=== PATIENT | female | born 1995 | race Caucasian/White ===

== ENCOUNTER 2022-08-25 07:39 | Inpatient (IN) ==
[2022-08-25] MEDS ORDERED: LIDOCAINE 1% LOCAL 20 ML VIAL INFIL PRN ×2 (07:58→08:05)
[2022-08-25] MEDS ORDERED: OXYTOCIN 30 UNITS/500 ML BAG IV PRN ×2 (07:58→08:05)
[2022-08-25] MEDS ORDERED: LACTATED RINGER'S 1,000 ML IV PRN (08:05)
[2022-08-25 08:50] LABS: Hematocrit (blood only) 35.1 % (37.0-47.0); Hemoglobin 11.7 g/dl (12.0-16.0); Mean Corpuscular Hemoglobin 27.7 pg (25.0-34.0); Mean Corpuscular Hgb Conc 33.3 g/dL (32.0-36.0); Mean Platelet Volume 10.3 fL (9.4-12.4); Platelet Count 297 K/uL (130-400); RDW Coefficient of Variation 15.5 % (11.5-14.5); RDW Standard Deviation 46.8 fL (36.4-46.3); Red Blood Count 4.23 M/uL (4.20-5.40); White Blood Count 10.04 K/ul (4.8-10.8)
--- NOTE | 2022-08-25 09:23 | History & Physical Report ---
Date of Service August 25, 2022 Assessment & Plan (1) Post-dates : Plan: Cervidil for cervical ripening Admission and Anticipated Discharge Date Admission Date: August 25, 2022 History of Present Illness Chief Complaint: induction of labor for post-dates Primary Care Provider: GHAZALA PCP 27 F P0000 at 40.4 weeks for IOL for post-dates. GBS is negative. Covid is negative. Home Medications Medication Instructions Recorded Confirmed Type Iron (ferrous sulfate) 1 tab PO DAILY 08/25/22 08/25/22 History 1 tab PO DAILY 08/25/22 08/25/22 History Patient History Medical History Anemia affecting first Patient received 3 iron infusions and currently taking Iron tablet. Surgical screw in right hand Right hand surgery with plate and 9 srews. 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 History neg Review of Systems All systems reviewed & are unremarkable except as noted in HPI & below Physical Exam Constitutional: WD/WN, vitals as above Eyes: PERRL, conjunctivae normal, anicteric sclerae Respiratory: normal respiratory effort, lungs clear to auscultation Cardiovascular: Rate/Rhythm: regular rate and regular rhythm Musculoskeletal: Extremities: extremities normal to inspection Skin: no rashes, warm and dry Neurologic: patellar DTR's 2+ bilat, sensation intact Psychiatric: A+Ox3, euthymic affect Genitourinary: no vaginal lesions, no adnexal mass OB Exam Abdomen: + fundal height, + vertex and + estimated weight (7-8 lbs) Manual OB Exam: + cervical dilation fingertip, + cervical effacement 50% and + station high OB Exam Monitor Tracing: + external FHT monitor used, + external uterine monitor used, + category I and + normal FHT variability cervix posterior and firm Results & Data Vital Signs (Past 12 Hours) Vital Signs Pulse BP 08/25/22 07:57 120 H 131/78 Laboratory Results 08/25/22 08/25/22 08:23 Unknown WBC 10.04 RBC 4.23 Hgb 11.7 L Hct 35.1 L MCV 83.0 MCH 27.7 MCHC 33.3 RDW Std Deviation 46.8 H RDW Coeff of Yao 15.5 H Plt Count 297 MPV 10.3 SARS-CoV-2, RNA, NAAT NEGATIVE Monitoring External Monitor Cat 1
[2022-08-25] MEDS ORDERED: DINOPROSTONE 10 MG INSERT PV ONE (09:30)
--- NOTE | 2022-08-25 11:04 | Labor Progress Brief Note ---
Date of Service August 25, 2022 Assessment & Plan Admission and Anticipated Discharge Date Admission Date: August 25, 2022 Physical Exam Genitourinary: OB Exam Monitor Tracing: + external FHT monitor used, + external uterine monitor used, + category I and + normal FHT variability Cervidil placed vaginally for ripening of cervix Results & Data Vital Signs (Past 12 Hours) Vital Signs Temp Pulse Resp BP 08/25/22 09:47 109 H 111/76 08/25/22 07:57 36.6 C 120 H 18 131/78 08/25/22 08:45 36.6 C 120 H 18 131/78
[2022-08-25] MEDS ORDERED: ZOLPIDEM TARTRATE 5 MG TAB PO PRN (17:55)
--- NOTE | 2022-08-25 22:51 | Labor Progress Brief Note ---
Date of Service August 25, 2022 Assessment & Plan Admission and Anticipated Discharge Date Admission Date: August 25, 2022 Physical Exam Genitourinary: Manual OB Exam: + cervical dilation 1 cm, + cervical effacement 50% and + station high OB Exam Monitor Tracing: + external FHT monitor used, + external uterine monitor used, + category I and + normal FHT variability Cervidil removed Will start Cytotec PO if contractions subside Results & Data Vital Signs (Past 12 Hours) Vital Signs Temp Pulse Pulse Resp BP BP O2 Del Method 08/25/22 19:48 62 24 Room Air 08/25/22 19:22 36.6 C 124 H 24 111/66 Room Air 08/25/22 13:26 36.6 C 18 08/25/22 22:45 95 H 124/78 08/25/22 19:18 137 H 111/66 08/25/22 16:25 18 08/25/22 16:25 36.7 C 18 08/25/22 16:26 103 H 125/70 08/25/22 13:26 99 H 117/69
[2022-08-26] MEDS: miSOPROStoL 50 MCG TAB PO SCH ×2 (03:50→10:13)
--- NOTE | 2022-08-26 09:13 | Labor Progress Brief Note ---
Date of Service August 26, 2022 Subjective Reason For Note: Routine Evaluation Review of Systems All systems reviewed & are unremarkable except as noted in HPI & below Constitutional: as per Subjective / HPI Assessment & Plan (1) Normal labor: Plan start pitocin to aument labor Pain meds including epidural as the pt desires Admission and Anticipated Discharge Date Admission Date: August 25, 2022 Physical Exam Constitutional: WD/WN, vitals as above Genitourinary: OB Exam Abdomen: + heart tones, + vertex and + regular contractions (7 lbs 5 ozs) Manual OB Exam: + cervical dilation 1 cm, + cervical effacement 60% and + station -1 OB Exam Monitor Tracing: + external FHT monitor used, + category I and + normal FHT variability Results & Data Vital Signs (Past 12 Hours) Vital Signs Temp Pulse Resp BP 08/26/22 07:00 102 H 111/69 08/26/22 03:31 36.6 C 93 H 18 118/78 08/25/22 22:45 36.6 C 95 H 18 124/78 Supervising Physician Co-Signing Physician Notes Margarita MARAVILLA
[2022-08-26] MEDS ORDERED: OXYTOCIN 30 UNITS/500 ML BAG IV PRN (10:43)
[2022-08-26] MEDS: LACTATED RINGER'S 1,000 ML IV PRN ×3 (11:01→18:03)
[2022-08-26] MEDS ORDERED: Nursing to Pharmacy Communication SCH (11:45)
[2022-08-26] MEDS ORDERED: BUPIVACAINE 0.25% PF 30 ML VIAL ONE (15:29)
[2022-08-26] MEDS ORDERED: fentaNYL citrate PF 100 MCG/2 ML VIAL ONE (15:29)
[2022-08-26] MEDS ORDERED: SODIUM CHLORIDE 0.9% PF INJ 10 ML VIAL ONE (15:29)
[2022-08-26] MEDS ORDERED: ePHEDrine sulfate 50 MG/ML AMP ONE (15:29)
[2022-08-26] MEDS ORDERED: LIDOCAINE 2%/EPINEPHRINE 1:200,000 20 ML PF ONE (15:29)
[2022-08-26] MEDS ORDERED: fentaNYL 2MCG/ML ROPIVACAINE 1.25MG/ML 100 ML BAG EPI ONE (15:30)
--- NOTE | 2022-08-26 16:02 | Anesthesiology Consultation ---
Date of Service August 26, 2022 Assessment & Plan (1) Encounter for pre-operative examination: Chart Review Chart Review: Acceptable Risk for Labor Epidural History Height/Weight Height: 5 ft 5 in Weight: 82.554 kg Allergies Allergy/AdvReac Type Severity Reaction Status Date / Time No Known Allergies Allergy Unverified 08/25/22 12:01 Medications Home Medications Medication Instructions Recorded Confirmed Last Taken Iron (ferrous sulfate) 1 tab PO DAILY 08/25/22 08/25/22 08/25/22 04:45 1 tab PO DAILY 08/25/22 08/25/22 08/25/22 04:45 Active Medications Generic Name Dose Route Start Last Admin Trade Name Freq PRN Reason Stop Dose Admin Lactated Ringer's 1,000 mls @ 125 mls/hr 08/25/22 07:58 08/26/22 15:50 Lr IV 08/27/22 07:57 999 mls/hr .Q8H PRN Administration L&D Protocol Protocol Oxytocin 30 units in 500 mls @ 14 mls/hr 08/26/22 10:43 08/26/22 14:55 Pitocin IV 08/28/22 10:42 0.84 units/hr .Q24H PRN 14 mls/hr Labor Induction/Augmentation Titration Protocol 0.84 UNITS/HR Zolpidem Tartrate 5 mg 08/25/22 17:55 08/26/22 01:57 Zolpidem Tartrate 5 Mg Tab PO 09/24/22 17:54 5 mg HS PRN Administration Sleep Past Medical History Medical History Anemia affecting first Patient received 3 iron infusions and currently taking Iron tablet. Surgical screw in right hand Right hand surgery with plate and 9 srews. Past Family History Family History Mother Von Willebrand disease Grandfather (Maternal) Cancer Grandmother (Maternal) Cancer Social History Smoking Status: Never smoker Hx Alcohol Use: No Hx Substance Use: No substance use type: does not use Physical Exam Vital Signs Last Vital Signs Temp 36.7 C 08/26/22 14:53 Pulse 118 H 08/26/22 15:55 Resp 20 08/26/22 15:40 BP 127/88 08/26/22 15:40 Pulse Ox 90 08/26/22 15:55 O2 Del Method Room Air 08/25/22 19:48 Testing Laboratory Results 08/25/22 08:23
[2022-08-26] MEDS ORDERED: BUPIVACAINE 0.25% PF 30 ML VIAL EPI STA (16:22)
[2022-08-26] MEDS ORDERED: SODIUM CHLORIDE 0.9% PF INJ 10 ML VIAL EPI PRN (16:22)
[2022-08-26] MEDS ORDERED: NALOXONE HCL 0.4 MG/1 ML VIAL/CARP IV PRN (16:22)
[2022-08-26] MEDS ORDERED: fentaNYL 2MCG/ML ROPIVACAINE 1.25MG/ML 100 ML BAG EPI PRN (16:22)
[2022-08-26] MEDS ORDERED: ONDANSETRON INJ 2 MG/ML 2 ML VIAL IV PRN (16:22)
[2022-08-26] MEDS ORDERED: ePHEDrine sulfate 50 MG/ML AMP IV PRN (16:22)
[2022-08-26] MEDS ORDERED: fentaNYL citrate PF 100 MCG/2 ML VIAL EPI PRN (16:22)
[2022-08-26] MEDS ORDERED: SODIUM CHLORIDE 0.9% PF INJ 10 ML VIAL EPI STA (16:22)
[2022-08-26] MEDS ORDERED: ROPIVACAINE 0.5% PF 5 MG/ML 20 ML VIAL EPI PRN (16:22)
[2022-08-26] MEDS ORDERED: fentaNYL citrate PF 100 MCG/2 ML VIAL EPI STA (16:22)
[2022-08-26] MEDS ORDERED: BUPIVACAINE 0.25% PF 30 ML VIAL EPI PRN (16:22)
[2022-08-26] MEDS ORDERED: LIDOCAINE 2% MPF LOCAL 5 ML VIAL EPI PRN (16:22)
[2022-08-26] MEDS ORDERED: NALOXONE HCL 1 MG in SODIUM CHLORIDE 0.9% 1000ML 1,000 ML IV PRN (16:22)
[2022-08-26] MEDS ORDERED: LIDOCAINE 2%/EPINEPHRINE 1:200,000 20 ML PF EPI STA (16:22)
[2022-08-26] MEDS ORDERED: NURSING L&D Epidural Breakthrough Pain Update ONE (19:57)
--- NOTE | 2022-08-26 23:08 | Delivery Summary ---
Supervising Physician Co-Signing Physician Notes Zi MARAVILLA Vaginal Delivery Summary Date of Service August 26, 2022 Vaginal Delivery Summary and 2nd Degree LAC Pt fully dilated and pushing, placed in dorsal lithotomy position, prepped and draped in usual fashion, pushed for an hour delivered alive viable male IN OA position, nuchal cord around the neck x 1, reduced, placed the infant on the mothers abdomen, bulb suctioned nose and mouth, cord clamped and cut by the FOB. placenta delivered spoantenoulsy and complete. second degree vaginal lacerations noted, repaired with 2.0 and 3.0 Vicryl. IV Pitocin started. Pt tolerated the delivery well. Estimated blood loss; 350 cc. APGARS : 6,8 MNPG Vaginal Delivery Charge Delivery Type Details: and 2nd Degree LAC
[2022-08-26] MEDS ORDERED: HYDROCORTISONE ACETATE 25 MG SUPP PR PRN (23:10)
[2022-08-26] MEDS ORDERED: DIPHTHERIA/TETANUS/PERTUSSIS Vaccine (Tdap, Age 7+yrs) 0.5mL SYR/VL IM ONE (23:10)
[2022-08-26] MEDS ORDERED: ACETAMINOPHEN 325 MG TAB PO PRN (23:10)
[2022-08-26] MEDS ORDERED: BENZOCAINE 20% AER SPR 82.5 GM CAN EXT PRN (23:10)
[2022-08-26] MEDS ORDERED: bisacodyL 10 MG SUPP PR PRN (23:10)
--- NOTE | 2022-08-27 03:53 | Anesthesia Procedure Note ---
Date of Service August 27, 2022 Anesthesia Post Epidural Note Vital Signs Vital Signs: Temp Pulse Resp BP Pulse Ox O2 Del Method 36.5 C 120 H 22 116/74 96 Room Air 08/27/22 01:30 08/27/22 01:30 08/27/22 01:30 08/27/22 01:30 08/27/22 01:30 08/27/22 01:30 Notes Mental Status: alert / awake / arousable and participated in evaluation Nausea / Vomiting: adequately controlled Pain: adequately controlled Airway Patency, RR, SpO2: stable & adequate BP & HR: stable & adequate Hydration State: stable & adequate Neuraxial Anesthesia: was administered and sensory block is resolving Anesthetic Complications: no major complications apparent Epidural: Removed without complications and With tip intact
[2022-08-27 06:33] LABS: Hematocrit (blood only) 31.2 % (37.0-47.0); Hemoglobin 10.4 g/dl (12.0-16.0); Mean Corpuscular Hemoglobin 27.4 pg (25.0-34.0); Mean Corpuscular Hgb Conc 33.3 g/dL (32.0-36.0); Mean Corpuscular Volume 82.1 fL (80.0-100.0); Mean Platelet Volume 10.3 fL (9.4-12.4); Platelet Count 272 K/uL (130-400); RDW Coefficient of Variation 15.6 % (11.5-14.5); RDW Standard Deviation 46.8 fL (36.4-46.3); White Blood Count 20.18 K/ul (4.8-10.8)
[2022-08-27] MEDS: IBUPROFEN 600 MG TAB PO PRN ×2 (09:08→20:53)
[2022-08-27] MEDS: PRENATAL VITAMIN 1 TAB PO SCH (09:08)
[2022-08-27] MEDS: DOCUSATE SODIUM 100 MG CAP PO SCH ×2 (09:08→20:53)
--- NOTE | 2022-08-27 11:24 | Obstetrical Progress Note ---
Date of Service August 27, 2022 Assessment & Plan (1) Normal course: pt doing well No complaints anticipate disch tomorrow Subjective Ambulation: ambulating normally Voiding: no voiding problems Passing Gas:: Yes Diet Tolerance:: regular diet Lochia:: Small Feeding Type:: breast feeding Review of Systems All systems reviewed & are unremarkable except as noted in HPI & below Physical Exam Constitutional WD/WN, vitals as above well developed and well nourished Eyes PERRL, conjunctivae normal, anicteric sclerae Neck trachea midline, no thyromegaly Respiratory normal respiratory effort, lungs clear to auscultation Auscultation: no crackles, no rales and no wheezes Cardiovascular RRR, no murmur, no edema Gastrointestinal (Abdomen) normal bowel sounds, soft, nontender, no hepatosplenomegaly Uterus is below umbilicus Musculoskeletal no cyanosis or clubbing, extremities motor strength 5/5 Skin no rashes, warm and dry Neurologic patellar DTR's 2+ bilat, sensation intact Psychiatric A+Ox3, euthymic affect Genitourinary normal external appearance Results & Data Vital Signs (Past 12 Hours) Vital Signs Temp Pulse Pulse Resp BP BP Pulse Ox 08/27/22 04:00 36.4 C L 103 H 20 115/71 98 08/27/22 01:30 36.5 C 120 H 22 116/74 96 08/27/22 01:01 127 H 120/59 L 08/27/22 00:46 131 H 123/64 08/27/22 00:31 142 H 18 142/71 H 08/27/22 00:16 131 H 112/73 08/27/22 00:01 139 H 18 119/68 08/26/22 23:46 137 H 18 122/60 08/26/22 23:31 116 H 18 119/69 O2 Del Method 08/27/22 04:00 Room Air 08/27/22 01:30 Room Air 08/27/22 01:01 08/27/22 00:46 08/27/22 00:31 08/27/22 00:16 08/27/22 00:01 08/26/22 23:46 08/26/22 23:31
[2022-08-27] MEDS ORDERED: bisacodyL 5 MG TABEC PO SCH (20:00)
[2022-08-28] MEDS: IBUPROFEN 600 MG TAB PO PRN (05:14)
--- NOTE | 2022-08-28 08:32 | Obstetrical Progress Note ---
Date of Service August 28, 2022 Assessment & Plan Admission and Anticipated Discharge Date Admission Date: August 25, 2022 Subjective abdomen soft and non tender no calf tenderness ambulating well vaginal bleeding scant hgb 10.4 Results & Data Vital Signs (Past 12 Hours) Vital Signs Temp Pulse Resp BP Pulse Ox O2 Del Method 08/28/22 07:42 36.4 C L 90 20 104/70 98 Room Air 08/27/22 23:29 36.3 C L 98 H 18 108/74 96 Room Air
[2022-08-28 08:41] LABS: Hematocrit (blood only) 30.7 % (37.0-47.0); Hemoglobin 10.2 g/dl (12.0-16.0)
[2022-08-28] MEDS: DOCUSATE SODIUM 100 MG CAP PO SCH (09:11)
[2022-08-28] MEDS: PRENATAL VITAMIN 1 TAB PO SCH (09:11)
== END 2022-08-28 14:00 | disposition home or self-care (01) | DRG 807 ==
LOC: 4S1 07:39 → 4E2 08-27 01:51